=== PATIENT | male | born 1990 | race Caucasian/White ===

== ENCOUNTER 2023-10-05 10:30 | Emergency (ER) | payer MEDICAID, SELFPAY ==
[2023-10-05 10:39] VITALS: BP 158/79; PULSE 80; TEMP 37.1; O2SAT 99; BMI 26.2
--- NOTE | 2023-10-05 10:45 | PC.NURSE ---
left knee swelling, no bruising and skin intact. pt ambulates with a limp and has been using ice and OTC meds for comfort at home.
--- NOTE | 2023-10-05 10:46 | XR_ITS ---
[facility] [place] [id number] Patient Name: ALVINA BRAVO MRN: [id number]:[id number] date: 1990 Sex: M Assigned Patient Location: ER Current Patient Location: Accession/Order Number: [id number] Exam Date: 10/05/2023 11:00 Report Date: 10/05/2023 14:03 At the request of: ESTEE THOMASON Procedure: XR knee LT 4V EXAM: XR knee LT 4V HISTORY: pain COMPARISON: None. TECHNIQUE: 4 views left knee FINDINGS: No acute displaced fracture or dislocation is evident. Moderate size joint effusion without layering lipohemarthrosis. Soft tissues are unremarkable. XR/XR knee LT 4V IMPRESSION: Negative radiographic evaluation for fracture. Electronically authenticated by: DEVANTE HOLCOMB Date: 10/05/2023 14:03
--- NOTE | 2023-10-05 12:16 | ED.LOWEXI1 ---
HPI HPI - Extremity Injury (Lower) General Chief Complaint: Extremity Injury, Lower Stated Complaint: LEG PAIN Time Seen by Provider: 10/05/23 10:49 Source: patient Mode of arrival: walk-in History of Present Illness HPI Narrative: Patient is coming to us with a left knee pain that started after he was running yesterday in the park and he felt that his left knee got twisted, the patient felt a pop and he since then has not been able to put weight on his left knee, no other injuries and he had no fall or trauma Related Data Previous Rx's ?Medication ?Instructions ?Recorded ibuprofen 600 mg tablet 600 mg PO TID PRN pain #20 tabs 10/05/23 Allergies Allergy/AdvReac Type Severity Reaction Status Date / Time No Known Drug Allergies Allergy Verified 10/05/23 10:42 Opioid HPI Opioid Management Most Recent Pain and Opioid Data: No Data to Display Review of Systems ROS Status of ROS 10 or more systems reviewed and unremarkable except as noted in history and below Exam Narrative Exam Narrative: Nurses notes and vital signs reviewed and patient is not hypoxic. General: Well-appearing and in no apparent distress. Skin: Warm, dry, no pallor noted. No rash. Head: Normocephalic, atraumatic. Neck: Supple, non-tender. Eye: Pupils are equal, round and EOMI. No scleral icterus. Ears, Nose, Mouth, and Throat: TM are clear, no nasal mucosal hypertrophy. Oral mucosa is moist, no posterior oropharynx erythema, uvula is mid-line Cardiovascular: Regular Rate and Rhythm without murmur, gallop or rub. Respiratory: No accessory muscle use or respiratory distress. Lungs are clear to auscultation, no wheezing, rales or rhonchi Chest Wall: no tenderness Back: No midline thoracic or lumbar vertebral tenderness. No CVA tenderness Musculoskeletal: The patient have mild swelling of the left knee medially with no tenderness upon palpation of the bony prominences the patient have limitation of flexion due to pain. Negative anterior and posterior drawer signs GI: Abdomen is soft, non-distended. Normal bowel sounds. No masses appreciated. No tenderness to palpation. No rebound, guarding, or rigidity noted. Neurological: A&O x4. No cranial nerve dysfunction observed. No truncal ataxia. Moves all extremities. Sensation intact. Psychiatric: Cooperative and interactive. Normal mood and affect. Constitutional Vital Signs, click to edit/add: Last Vital Signs Temp 98.7 F 10/05/23 10:39 Pulse 80 10/05/23 10:39 Resp 16 10/05/23 10:39 BP 158/79 H 10/05/23 10:39 Pulse Ox 99 10/05/23 10:39 O2 Del Method Room Air 10/05/23 10:39 Course Vital Signs Vital signs: Vital Signs Temperature 98.7 F 10/05/23 10:39 Pulse Rate 80 10/05/23 10:39 Respiratory Rate 16 10/05/23 10:39 Blood Pressure 158/79 H 10/05/23 10:39 Pulse Oximetry 99 10/05/23 10:39 Oxygen Delivery Method Room Air 10/05/23 10:39 Temperature 98.7 F 10/05/23 10:39 Pulse Rate 80 10/05/23 10:39 Respiratory Rate 16 10/05/23 10:39 Blood Pressure 158/79 H 10/05/23 10:39 Pulse Oximetry 99 10/05/23 10:39 Oxygen Delivery Method Room Air 10/05/23 10:39 MDM - Extremity Injury (Lower) MDM Narrative Medical decision making narrative: The patient presented to us with knee pain mostly secondary to knee sprain and possibly ligament problem or meniscal The patient x-ray of the left knee obtained and showing no acute pathology and the prelim reading The patient will be provided with a knee immobilizer as well as crutches and elevation and rest with follow-up with orthopedic for further evaluation with an MRI The patient is to follow up with primary care physician in next 2-3 days or to return to the emergency department should any of the signs or symptoms worsen or new symptoms develop. The patient agrees with the following Diagnosis and Treatment plan and the patient will be discharged home. Discharge Plan Discharge Stand Alone Forms: Portal Instructions Chief Complaint: Extremity Injury, Lower Clinical Impression: Knee effusion Qualifiers: Laterality: right Qualified Code(s): M25.461 - Effusion, right knee Knee sprain Qualifiers: Encounter type: initial encounter Involved ligament of knee: unspecified ligament Laterality: right Qualified Code(s): S83.91XA - Sprain of unspecified site of right knee, initial encounter Patient Disposition: Home, Self-Care Time of Disposition Decision: 11:51 Condition: Good Mode of Transportation: Private Vehicle Prescriptions / Home Meds: New ibuprofen 600 mg tablet 600 mg PO TID PRN (Reason: pain) Qty: 20 0RF Print Language: [place] Instructions: Knee Sprain (DC), Crutch Instructions (ED) Referrals: Physician,Non-Staff, MD [Primary Care Provider] - 1 week Taran Mario MD [Physician] - 1 week Discharge Date/Time: 10/05/23 12:16
== END 2023-10-05 12:16 | disposition home or self-care (01) ==
PROVIDERS: Emergency Provider Emergency Medicine
DX: S83.92XA Sprain of unspecified site of left knee, initial encounter (principal); M25.461 Effusion, right knee; X50.1XXA Overexertion from prolonged static or awkward postures, initial encounter; Y93.02 Activity, running
CPT/HCPCS: 73564; 99283